=== PATIENT | male | born 1965 | race Caucasian/White ===

== ENCOUNTER 2018-09-23 15:29 | Outpatient (CLI) | payer OTHER ==
--- NOTE | 2018-09-24 15:46 | XRAY Report ---
Reason: PAIN IN LEFT FOOT Procedure Date: 09/23/2018 Accession Number: [id number] / [id number] Procedure: XR - Foot 3 View LT CPT Code: FULL RESULT: EXAM: LEFT FOOT RADIOGRAPHY EXAM DATE: 09/23/2018 03:53 PM. CLINICAL HISTORY: Chronic left foot/heel pain for 4 months, no known injury. COMPARISON: None. TECHNIQUE: 3 views. FINDINGS: Bones: There is a small calcaneous plantar spur with associated adjacent soft tissue, likely plantar fascial thickening but no calcification. No fractures or bone destructive lesions. Joints: There is mild hallux valgus deformity without significant degenerative arthritis. No subluxations. Soft Tissues: No soft tissue calcification. IMPRESSION: Small calcaneus plantar spur with associated adjacent soft tissue, likely plantar fascial thickening, suspicious for plantar fasciitis. [facility]
== END 2018-09-23 15:30 | disposition home or self-care (01) ==
LOC: DI 15:29
PROVIDERS: ATTEND Specialist
DX: M77.32 Calcaneal spur, left foot (principal)

== ENCOUNTER 2020-05-27 10:50 | Outpatient (CLI) | payer OTHER | END 2020-05-27 10:51 | disposition home or self-care (01) | LOC: COV 10:50 | PROVIDERS: ATTEND Family Medicine | DX: Z20.828 Contact with and (suspected) exposure to other viral communicable diseases (principal) ==

== ENCOUNTER 2022-07-03 09:18 | Outpatient (CLI) | payer OTHER ==
[2022-07-03 10:00] VITALS: BP 122/72
--- NOTE | 2022-07-03 10:00 | SLEEP CARE CONSULTATION ---
Information from patient questionnaire entered by Joseph Beltran. I have reviewed and concur with the information entered by Joseph Beltran. This document represents the service I personally performed and the decisions made by me, Dottie Mac ARNP. History of Present Illness Service Date and Time: 07/03/2022 0918 Previous diagnosis: Moderate, Obstructive Sleep Apnea-Hypopnea Syndrome AHI: 28.5 (November 2021) Reason for follow up: three month (F/U) Equipment type: CPAP (RESMED Airsense 10, s/u 11/2021; NEED SD FOR DOWNLOAD AND PRESSURE CHANGES) Equipment obtained from: Other ([facility], getting supplies) Mask style: Nasal pillows Backup mask available: No (will keep old mask when replaced) Last cushion change: Jan 2022 Year and Where: [facility] 11/2021 HPI additional information: RUTH MCLEOD was diagnosed to have moderate, AHI 28.5, obstructive sleep apnea-hypopnea syndrome and returned today for CPAP therapy three month follow- up. CPAP Compliance Data - Data Reviewed with Patient Average duration of nightly device use: 5 hours 44 minutes Compliance rate %: 76 (84/90 days used) Current pressure setting (cmH2O): 8-11 Average residual AHI: 1.2 Central apnea: 0.2 Obstructive apnea: 0.2 Average large leak: 0.2 lpm Subjective Missed days of use due to: reports: travel Patient concerns: reports: mask leak noise (when he rolls his head, adjustment of headgear improves it). denies: aerophagia, mask discomfort, air blowing in eyes, condensation in mask/hose, nasal congestion, dry mouth, nose, throat, epistaxis Observed to snore while using device: No Current pressure setting perceived as: comfortable On therapy, patient: reports: sleeping better, awakening more refreshed, being more awake and alert during the day, more rested overall. denies: drowsiness while driving Initial Byron Sleepiness Scale score: 3 (03/2022) Current Byron Sleepiness Scale score: 5 Allergies and Home Medications Drug allergies reviewed: Yes (NKDA) Home medication list reviewed: Yes (no changes) Review of Systems Review of systems same as previous: Yes (no changes) Physical Exam Vital signs obtained and entered by: JOSEPH Khan MA Blood Pressure: 122/72 (LEFT ARM) Cuff size: regular Heart Rate: 75 O2 Saturation: 96 Height: 6 ft 1 in Weight: 154 lb 12.8 oz Body Mass Index: 20.4 BMI Classification: Normal Impression and Plan 1. Obstructive Sleep Apnea-Hypopnea Syndrome, moderate, with good treatment compliance and good apnea control. On CPAP therapy, the patient has better sleep quality and is more rested overall. Patient has significant improvement of their sleep apnea and are satisfied with current CPAP therapy. Patient denies problems with oral dryness, nasal congestion, epistaxis, skin irritation or aerophagia. Patient needing an update of supplies prescription sent to his DME. Patient's apnea severity and rationale for treatment to reduce apnea, improve sleep quality and reduce cardiovascular and cerebrovascular events was reviewed. I also reviewed the benefit of consistent device use of CPAP for gastric reflux. * Continue auto CPAP pressure at 8-11 cmH2O * Update supplies * Notify me if snoring with mask or feeling that the pressure is too much or too little * Attempt to lose weight * Call this office if any problems using CPAP * Return for follow up in 1 year, or sooner if concerns arise Counseling Topics: Spare mask Visit Type: In Office Time Spent with Patient (minutes): 22 Provider Statement: I spent 100% of the Face to Face Visit with the patient with greater than 50% spent counseling the patient and coordination of care.
== END 2022-07-03 09:19 | disposition home or self-care (01) ==
LOC: SC 09:18
PROVIDERS: ATTEND Nurse Practitioner Family
DX: G47.33 Obstructive sleep apnea (adult) (pediatric) (principal)
CPT/HCPCS: 99212; 99213

== ENCOUNTER 2023-03-15 09:56 | Outpatient (CLI) | payer OTHER ==
[2023-03-15 12:12] LABS: BASOPHILS % (AUTO) 0.4 %; EOSINOPHILS # (AUTO) 0.2 10^3/uL (0.0-0.7); EOSINOPHILS % (AUTO) 2.1 %; HCT - HEMATOCRIT 45.9 % (42.0-52.0); HGB - HEMOGLOBIN 15.3 g/dL (14.0-18.0); LYMPHOCYTES # (AUTO) 2.5 10^3/uL (1.5-3.5); LYMPHOCYTES % (AUTO) 30.2 %; MEAN CORPUSCULAR HGB CONC 33.3 g/dL (32.0-36.0); MEAN CORPUSCULAR VOLUME 86.9 fL (80.0-94.0); MEAN PLATELET VOLUME 11.4 fL (7.4-11.4); MONOCYTES # (AUTO) 0.7 10^3/uL (0.0-1.0); MONOCYTES % (AUTO) 8.5 %; NEUTROPHILS # (AUTO) 4.8 10^3/uL (1.5-6.6); NEUTROPHILS % (AUTO) 58.4 %; PLT - PLATELET COUNT 212 10^3/uL (130-450); RED BLOOD COUNT 5.28 10^6/uL (4.70-6.10); RED CELL DISTRIBUTION WIDTH 12.5 % (12.0-15.0); WHITE BLOOD COUNT 8.2 x10^3/uL (4.8-10.8)
[2023-03-15 12:43] LABS: ALBUMIN 4.4 g/dL (3.2-5.5); ALBUMIN/GLOBULIN RATIO 1.6 (1.0-2.2); ALKALINE PHOSPHATASE 71 IU/L (42-121); ALT ALANINE AMINOTRANSFERASE 51 IU/L (10-60); AST ASPARTATE AMINOTRANSFERASE 29 IU/L (10-42); BILIRUBIN,TOTAL 0.7 mg/dL (0.2-1.0); BUN - BLOOD UREA NITROGEN 19 mg/dL (6-20); CALCIUM 9.5 mg/dL (8.5-10.3); CARBON DIOXIDE - CO2 30 mmol/L (21-32); CHLORIDE 104 mmol/L (101-111); CHOL/HDL RATIO 4.6 (<5.0); CHOLESTEROL 199 mg/dL; CREATININE 0.9 mg/dL (0.6-1.3); GFR - MDRD 86 (>89); GLUCOSE 93 mg/dL (74-104); HDL CHOLESTEROL 43 mg/dL; LDL CHOLESTEROL,CALCULATED 114 mg/dL; LDL/HDL RATIO 2.7 (<3.6); POTASSIUM 4.2 mmol/L (3.5-4.5); SODIUM 138 mmol/L (135-145); TOTAL PROTEIN 7.2 g/dL (6.4-8.9); TRIGLYCERIDES 212 mg/dL (48-352); VLDL CHOLESTEROL 42 mg/dL
[2023-03-15 12:53] LABS: THYROID STIMULATING HORMONE 2.39 uIU/mL (0.34-5.60)
== END 2023-03-15 09:57 | disposition home or self-care (01) ==
LOC: LAB.N 09:56
PROVIDERS: ATTEND Physician Assistant
DX: G47.33 Obstructive sleep apnea (adult) (pediatric) (principal); Z13.220 Encounter for screening for lipoid disorders; R68.82 Decreased libido
CPT/HCPCS: 36415; 80050; 80061; 83721

== ENCOUNTER 2023-12-30 07:44 | Outpatient (CLI) | payer OTHER ==
--- NOTE | 2023-12-30 13:30 | XRAY Report ---
PROCEDURE: Elbow 3+V LT INDICATIONS: ELBOW PX LEFT TECHNIQUE: 3 views of the elbow were acquired. COMPARISON: None. FINDINGS: Bones: No fracture or malalignment. Mild ulnohumeral joint space loss. Prominent enthesopathy at the common flexor, common extensor tendon origins and triceps tendon attachment. Soft tissues: No effusion. No suspicious soft tissue calcifications or masses. IMPRESSION: Mild degenerative change at the ulnohumeral joint. Enthesopathic change indicating chronic musculoskeletal strain. Reviewed by: Jemima Alejo MD on 12/30/2023 1:28 PM PDT Approved by: Jemima Alejo MD on 12/30/2023 1:28 PM PDT Station ID: [id number]
== END 2023-12-30 07:45 | disposition home or self-care (01) ==
LOC: DI 07:44
PROVIDERS: ATTEND Physician Assistant
DX: M19.022 Primary osteoarthritis, left elbow (principal)